=== PATIENT | female | born 1960 | race Caucasian/White ===

== ENCOUNTER 2016-10-16 13:04 | Day surgery (SDC) | payer OTHER ==
[~2016-10-16] VITALS: Ht 160 cm; Wt 89.8 kg
[~2016-10-16 13:04] MED LIST: LEVO-T125 MCG PO; LEVOTHYROXINE125 MCG PO; MOBIC15 MG PO; MOTRIN800 MG PO; TEGRETOL100 MG PO
== END 2016-10-16 15:25 | disposition home or self-care (01) ==
LOC: PAIN 13:04 → SDC 14:00 → PAIN 14:00
DX: M46.1 Sacroiliitis, not elsewhere classified (principal); M53.3 Sacrococcygeal disorders, not elsewhere classified; F41.9 Anxiety disorder, unspecified; M47.816 Spondylosis without myelopathy or radiculopathy, lumbar region; M79.1 Myalgia; E03.9 Hypothyroidism, unspecified; E66.9 Obesity, unspecified; Z68.34 Body mass index [BMI] 34.0-34.9, adult; Z83.79 Family history of other diseases of the digestive system; Z82.49 Family history of ischemic heart disease and other diseases of the circulatory system; Z83.3 Family history of diabetes mellitus; Z88.1 Allergy status to other antibiotic agents
CPT/HCPCS: J1030; J2250; J3010; S0020